=== PATIENT | female | born 1970 | race Caucasian/White ===

== ENCOUNTER → 2018-04-22 16:00 | Outpatient (CLI) | payer OTHER, SELFPAY | PROVIDERS: Family Provider Internal Medicine; PCP Internal Medicine | DX: Z23 Encounter for immunization (principal) | CPT/HCPCS: 90471; 90686 ==

== ENCOUNTER → 2018-08-02 13:38 | Outpatient (CLI) | payer OTHER, SELFPAY ==
--- NOTE | 2018-08-02 | DI.US.S_ITS ---
PROCEDURE: US PELVIC COMPLETE INDICATIONS: MENNORHAGIA TECHNIQUE: Real-time scanning was performed of the pelvic organs, with image documentation. Additional endovaginal scanning was necessary due to incomplete visualization of the adnexal and endometrial structures by transabdominal scanning. COMPARISON: None. FINDINGS: Transabdominal scanning: Limited scanning through the kidneys shows no hydronephrosis. No pathologic free abdominal or pelvic fluid. Endovaginal scanning: Uterus: Uterus is normal in size at the 4.2 x 5.4 x 9.4 cm. The endometrium measures 10.1 mm in combined thickness. Ovaries: Normal in size and echotexture measuring up to 2.1 x 1.5 x 1.1 cm on the right and 3.5 x 1.5 x 2.1 cm on the left IMPRESSION: Normal pelvic ultrasound, no source of menorrhagia is found. Dictated by: Michael Lewis M.D. on 08/02/2018 at 15:15 Approved by: Michael Lewis M.D. on 08/02/2018 at 15:16
== END ==
PROVIDERS: Family Provider Internal Medicine; PCP Internal Medicine; Visit Provider Internal Medicine
DX: N92.0 Excessive and frequent menstruation with regular cycle (principal)
CPT/HCPCS: 76856

== ENCOUNTER → 2018-08-14 07:35 | Outpatient (CLI) | payer OTHER, SELFPAY ==
[2018-08-14 08:16] LABS: Add Manual Diff / Slide Review NO; Basophils Absolute Auto 0 /uL (0-100); Basophils Percent Auto 0.4 % (0-2); Eosinophils Absolute Auto 400 /uL (0-450); Eosinophils Percent Auto 3.8 % (2-4); Hemoglobin 15.1 g/dL (12.0-16.0); Lymphocytes Absolute Auto 3000 /uL (1100-4500); Mean Corpuscular HGB Conc 33.5 % (30-36); Mean Corpuscular Hemoglobin 29.8 PG (26-34); Mean Corpuscular Volume 88.9 fL (80-100); Monocytes Absolute Auto 700 /uL (0-900); Neutrophils Absolute Auto 5500 /uL (1500-7000); Neutrophils Percent Auto 57.8 % (50-75); Platelet Count 414 X10^3/uL (150-400); Red Blood Cell Count 5.07 X10^6/uL (4.0-5.2); White Blood Cell Count 9.6 X10^3/uL (4.5-11.0)
[2018-08-14 08:54] LABS: Alanine Aminotransferase 33 IU/L (9-52); Albumin 4.6 g/dL (3.5-5.0); Albumin Globulin Ratio 1.2 (1.0-2.8); Alkaline Phosphatase 98 U/L (38-126); Aspartate Aminotransferase 35 IU/L (14-36); BUN Creatinine Ratio 23.8 (6-22); Bilirubin Total 0.8 mg/dL (0.2-1.3); Blood Urea Nitrogen 19 mg/dL (7-17); Calcium 9.9 mg/dL (8.4-10.2); Carbon Dioxide 26 mmol/L (22-32); Chloride 99 mmol/L (98-107); Cholesterol 212 mg/dL (140-199); Estimated Glomerular Filt Rate > 60.0 mL/min (>60); Glucose 121 mg/dL (70-100); HDL Cholesterol 60 mg/dL (40-60); HEMOLYSIS < 15 (0-50); LDL Cholesterol Calculated 122 mg/dL (<100); Potassium 3.6 mmol/L (3.4-5.1); Sodium 138 mmol/L (137-145); Total Protein 8.6 g/dL (6.3-8.2); Triglycerides 152 mg/dL (35-150)
[2018-08-14 09:23] LABS: Thyroid Stimulating Hormone 1.21 uIU/mL (0.47-4.68)
== END ==
PROVIDERS: PCP Internal Medicine; Visit Provider Internal Medicine
DX: I10 Essential (primary) hypertension (principal); N94.6 Dysmenorrhea, unspecified; E78.5 Hyperlipidemia, unspecified; E66.9 Obesity, unspecified
CPT/HCPCS: 36415; 80053; 80061; 84443; 85025

== ENCOUNTER → 2018-11-19 06:58 | Outpatient (CLI) | payer OTHER, SELFPAY ==
[2018-11-19 09:01] LABS: BUN Creatinine Ratio 18.8 (6-22); Blood Urea Nitrogen 15 mg/dL (7-17); Calcium 9.7 mg/dL (8.4-10.2); Carbon Dioxide 27 mmol/L (22-32); Chloride 102 mmol/L (98-107); Estimated Glomerular Filt Rate > 60.0 mL/min (>60); Glucose 116 mg/dL (70-100); HEMOLYSIS < 15 (0-50); Potassium 4.1 mmol/L (3.4-5.1); Sodium 138 mmol/L (137-145)
[2018-11-19 10:10] LABS: Hemoglobin A1C% w Est Avg Glu 5.4 % (4.0-6.0)
== END ==
PROVIDERS: PCP Internal Medicine; Visit Provider Internal Medicine
DX: R73.9 Hyperglycemia, unspecified (principal)
CPT/HCPCS: 36415; 80048; 83036

== ENCOUNTER → 2018-12-06 13:06 | Outpatient (CLI) | payer OTHER, SELFPAY ==
[2018-12-06 14:10] LABS: Add Manual Diff / Slide Review NO; Basophils Absolute Auto 100 /uL (0-100); Basophils Percent Auto 0.6 % (0-2); Eosinophils Absolute Auto 400 /uL (0-450); Eosinophils Percent Auto 4.5 % (2-4); Hematocrit 40.3 % (36-46); Hemoglobin 13.3 g/dL (12.0-16.0); Lymphocytes Absolute Auto 3400 /uL (1100-4500); Lymphocytes Percent Auto 36.7 % (25-40); Mean Corpuscular HGB Conc 32.9 % (30-36); Mean Corpuscular Hemoglobin 28.8 PG (26-34); Mean Corpuscular Volume 87.5 fL (80-100); Monocytes Absolute Auto 700 /uL (0-900); Monocytes Percent Auto 7.1 % (3-14); Neutrophils Absolute Auto 4700 /uL (1500-7000); Neutrophils Percent Auto 51.1 % (50-75); Platelet Count 369 X10^3/uL (150-400); Red Blood Cell Count 4.61 X10^6/uL (4.0-5.2); Red Cell Distribution Width 14.5 % (11.6-14.8); White Blood Cell Count 9.2 X10^3/uL (4.5-11.0)
[2018-12-06 14:30] LABS: Blood Urea Nitrogen 16 mg/dL (7-17); Calcium 10.3 mg/dL (8.4-10.2); Carbon Dioxide 27 mmol/L (22-32); Chloride 104 mmol/L (98-107); Estimated Glomerular Filt Rate > 60.0 mL/min (>60); Glucose 97 mg/dL (70-100); HEMOLYSIS < 15 (0-50); Sodium 141 mmol/L (137-145)
[2018-12-06 14:54] LABS: Potassium 3.8 mmol/L (3.4-5.1)
== END ==
PROVIDERS: PCP Internal Medicine; Visit Provider Specialist
DX: N92.0 Excessive and frequent menstruation with regular cycle (principal); Z01.818 Encounter for other preprocedural examination
CPT/HCPCS: 36415; 80048; 85025

== ENCOUNTER 2018-12-09 12:58 | Day surgery (SDC) | payer OTHER, SELFPAY ==
[2018-12-04 08:20] VITALS: BMI 38.4
[2018-12-09] VITALS (7 sets, daily range): BP systolic 136–152; BP diastolic 94–103; PULSE 82–98; RESP 16–18; TEMP 36.1–36.7; O2SAT 95–99; BMI 38.6
[2018-12-09] MEDS: LACTATED RINGERS 1,000 ML 42 ML IV (14:03)
--- NOTE | 2018-12-09 14:41 | PM.PREOP ---
Pre-operative Note Interval Note History & Physical reviewed/Exam performed by Physician: Yes Changes to H&P: No
--- NOTE | 2018-12-09 15:05 | SUR.OPER ---
Lithotomy on padded OR bed, head on pillow, arms secured on padded arm boards at <90 degrees abduction. Legs secured in padded yellow fins stirrups.
--- NOTE | 2018-12-09 15:15 | PM.OP.1 ---
Operative Date/Time/Diagnoses Date of procedure: 12/09/18 Time of procedure: 15:15 Pre-op diagnosis: Menorrhagia Post-op diagnosis: same Procedure & Clinicians Procedure: Hysteroscopy with NovaSure endometrial ablation Same procedure as scheduled: Yes Indications: Menorrhagia Surgeon: Esha Casanova Click Yes if Unassisted: Yes Anesthesia Type: General Operative Notes Findings: Thin endometrium on hysteroscopy, no obvious uterine pathology. Closure Type: not applicable Specimen(s): none sent Estimated Blood Loss (mL): 5 Blood products transfused: none Procedure in detail: The patient was brought to the operating room where she underwent general anesthesia. She was placed in low stirrups She was prepped and draped in usual sterile fashion.Pulsatile stockings were not indicated due to the short nature of the procedure, warming with blankets, no antibiotics were indicated. A single-tooth tenaculum was placed on the anterior lip of the cervix and the uterus dilated to #8 Hegar dilator. The hysteroscope was placed into the uterus with saline running. There were no abnormalities seen. The NovaSure sound was used to determine the length of the uterus which was over 6.5 cm. This was set on the NovaSure device. The device was placed in the uterus and the width determined to be 4.5 cm. The length and width were entered into the NovaSure machine. The plunger was pushed to the cervix to effect a good vacuum seal. This was documented by the machine. Cauterization was done with a total power of 161 and 57 seconds. The NovaSure array was pulled back into the device and then the device removed. Patient tolerated the procedure well. Counts of instruments and sponges were correct. Patient went to recovery room in good condition. Complications: none Condition: stable Disposition: same day surgery Plan for aftercare: Follow-up as needed
== END 2018-12-09 16:07 | disposition home or self-care (01) ==
PROVIDERS: PCP Internal Medicine; Visit Provider Specialist
PROC: 0U5B8ZZ Destruction of Endometrium, Via Natural or Artificial Opening Endoscopic (ICD-10-PCS; CPT 58563; principal; 2018-12-09 14:30)
DX: N92.0 Excessive and frequent menstruation with regular cycle (principal)
CPT/HCPCS: 58563; J1100; J1885; J2250; J2405; J2704; J3010

== ENCOUNTER → 2019-03-25 13:30 | Outpatient (CLI) | payer OTHER, SELFPAY | PROVIDERS: PCP Internal Medicine | DX: Z23 Encounter for immunization (principal) | CPT/HCPCS: 90471; 90686 ==

== ENCOUNTER 2019-07-10 20:34 | Emergency (ER) | payer OTHER, SELFPAY ==
[2019-07-10 20:54] VITALS: BP 140/100; PULSE 108; RESP 20; TEMP 36.9; O2SAT 96
--- NOTE | 2019-07-10 20:58 | DI.RAD.S_ITS ---
PROCEDURE: XR KNEE RT 3V INDICATIONS: fell on concrete hrting both knees this am TECHNIQUE: 3 views of the knee were acquired. COMPARISON: None. FINDINGS: Bones: No fractures or dislocations. No suspicious bony lesions. Soft tissues: No joint effusion. No suspicious soft tissue calcifications. IMPRESSION: No fracture. Dictated by: Rashad Shaw M.D. on 07/10/2019 at 21:58 Approved by: Rashad Shaw M.D. on 07/10/2019 at 21:59
--- NOTE | 2019-07-10 21:00 | DI.RAD.S_ITS ---
PROCEDURE: XR KNEE LT 3V INDICATIONS: fall on knees TECHNIQUE: 3 views of the knee were acquired. COMPARISON: None. FINDINGS: Bones: No fractures or dislocations. No suspicious bony lesions. Soft tissues: No joint effusion. No suspicious soft tissue calcifications. IMPRESSION: No fracture Dictated by: Rashad Shaw M.D. on 07/10/2019 at 22:00 Approved by: Rashad Shaw M.D. on 07/10/2019 at 22:00
--- NOTE | 2019-07-10 23:06 | ED_ITS ---
HPI - Extremity Injury (Lower) General Chief Complaint: Extremity Injury, Lower Stated Complaint: BILATERAL KNEE PAIN S/P FALL Time Seen by Provider: 07/10/19 23:05 Source: patient Mode of arrival: Ambulatory Limitations: no limitations History of Present Illness HPI Narrative: 48-year-old woman with a history of hypertension, reflux, hyperlipidemia, mild anxiety presents after a fall where she landed on both knee s with a valgus type deformity to both knees. Complaining of pain medially on both sides. She is able to walk but the pain is increasing to the point that she came to the emergency room for further evaluation Related Data Home Medications Medication Instructions Recorded Confirmed albuterol sulfate 1 - 2 puff INHALATION Q4-6H PRN #0 04/18/11 12/09/18 cetirizine 10 mg PO DAILY PRN #0 04/18/11 12/09/18 simvastatin [Zocor] 20 mg PO QHS 12/04/18 12/09/18 trazodone 50 mg PO HSP PRN 12/04/18 12/09/18 alprazolam 0.5 mg PO Q8HP PRN 12/09/18 12/09/18 Previous Rx's Medication Instructions Recorded omeprazole 20 mg PO QDAY #90 cap 03/12/17 hydrochlorothiazide 25 mg tablet 25 mg PO QDAY #90 tab 03/19/18 losartan 50 mg tablet 50 mg PO QDAY #90 tab 05/07/18 bupropion HCl 150 mg 24 hr tablet, 150 mg PO QDAY #90 tab 06/17/18 extended release Allergies Allergy/AdvReac Type Severity Reaction Status Date / Time cephalexin Allergy Mild RASH Verified 12/09/18 13:40 ciprofloxacin Allergy Mild RASH Verified 12/09/18 13:40 lisinopril Allergy Mild COUGH Verified 12/09/18 13:40 Review of Systems Review of Systems Narrative: Denies ? fever ? cough ? cold ? chills ? chest pain ? dyspnea ? wheezing ? abdominal pain ? change to bowel or bladder habits ? nausea vomiting ? skin changes ? rashes Patient History Medical History (Updated 07/10/19 @ 23:17 by Jessie Abdi MD) Anxiety and depression (Acute ~2001) Asthma (Acute ~2006) Cardiac arrhythmia (Acute ~2004) Central serous retinopathy (Acute ~2012) HTN (hypertension) (Acute) Hyperthyroidism (Acute ~2002) Family History (Updated 12/08/13 @ 00:00 by Conversion Provider) Grandmother Cancer Mother Age: 75 Hypertension High cholesterol Grandfather Heart disease Cancer Grandmother Age: 106 Stroke Heart disease Macular degeneration, wet Macular degeneration, dry Social History household members: family and children Smoking Status: Never smoker alcohol intake: current Smoking Status: Never smoker alcohol intake frequency: holidays/special occasions only Substance Use Type: does not use Exam Narrative Exam Narrative: General: Alert appropriate in no acute distress Respiratory: Able to speak in full sentences, no obvious respiratory distress Skin: No obvious rashes, warm and dry Neurologic: Grossly intact no obvious asymmetries or abnormalities Psych, appropriate insight and affect, cooperative Extremities: Both knees are examined. She has tenderness along the medial collateral ligament insertions and effusions in the medial portion of the knees bilaterally. There's no contusions or abrasions. Completely neurovascularly intact bilaterally. She is able to walk. Decreased range of motion to complete flexion due to pain and effusion bilaterally Initial Vital Signs Initial Vital Signs: Vital Signs Temperature 98.4 F 07/10/19 20:54 Pulse Rate 108 H 07/10/19 20:54 Respiratory Rate 20 07/10/19 20:54 Blood Pressure 140/100 H 07/10/19 20:54 Pulse Oximetry 96 07/10/19 20:54 Course Orders Ordered: ED Orders 07/10/19 20:58 XR knee RT 3V Stat 07/10/19 21:00 XR knee LT 3V Stat Vital Signs Vital signs: Vital Signs - 8 hr 07/10/19 23:22 Pulse Rate 102 H Blood Pressure [Left Arm] 146/93 H Pulse Oximetry 96 MDM - Extremity Injury (Lower) Imaging Data Knee xr R: Radiologist's Impression: knee xray L: Radiologist's Impression: IMPRESSION: No fracture. Dictated by: Rashad Shaw M.D. on 07/10/2019 at 21:58 Discharge Plan Departure Patient Disposition: Home Clinical Impression: Sprain of medial collateral ligament of left knee, initial encounter, Sprain of medial collateral ligament of right knee, initial encounter Discharge Date/Time: 07/10/19 23:39 Instructions: DI for Knee Sprain Activity Restrictions/Additional Instructions: I'm so sorry fell so hard today. Here x-rays are unremarkable. With the mechanism of your fall the area of your pain I suspect the you have strained the medial collateral ligaments of both knees. Fortunately this will heal all by itself. I would expect the pain to be worse in the 1st 1-2 days after the injury. Ice will be helpful in controlling some of the swelling. I would recommend to ibuprofen and 1 Tylenol every 6 hours as needed for pain. I hope you heal quickly It was delightful to see you again! Prescriptions: No Action cetirizine 10 MG tablet 10 mg PO DAILY PRN (Reason: Allergy Symptoms) Qty: 0 RF: 0 albuterol sulfate 90 mcg/actuation Hfa Aerosol Inhaler 1 - 2 puff INHALATION Q4-6H PRN (Reason: Dyspnea) Qty: 0 RF: 0 omeprazole 20 MG capsule,delayed release(DR/EC) 20 mg PO QDAY Qty: 90 RF: 3 hydrochlorothiazide 25 mg tablet 25 mg PO QDAY Qty: 90 RF: 0 losartan 50 mg tablet 50 mg PO QDAY Qty: 90 RF: 3 bupropion HCl [Wellbutrin XL] 150 mg tablet extended release 24 hr 150 mg PO QDAY Qty: 90 RF: 0 trazodone 50 MG tablet 50 mg PO HSP PRN (Reason: Sleep) RF: 0 simvastatin [Zocor] 20 MG tablet 20 mg PO QHS RF: 0 alprazolam 0.5 mg tablet 0.5 mg PO Q8HP PRN (Reason: Anxiety) RF: 0 Referrals: Alice Mojica ARNP [Primary Care Provider] - Stand Alone Forms: Work Release Note
[2019-07-10 23:22] VITALS: BP 146/93; PULSE 102; O2SAT 96
== END 2019-07-10 23:39 | disposition home or self-care (01) ==
PROVIDERS: Emergency Provider Emergency Medicine; Family Provider Family Medicine; PCP Internal Medicine
DX: S83.412A Sprain of medial collateral ligament of left knee, initial encounter (principal); S83.411A Sprain of medial collateral ligament of right knee, initial encounter; W19.XXXA Unspecified fall, initial encounter
CPT/HCPCS: 73562; 99283

== ENCOUNTER → 2020-01-05 12:06 | Outpatient (CLI) | payer OTHER, SELFPAY ==
[2020-01-05 13:29] LABS: Add Manual Diff / Slide Review NO; Basophils Absolute Auto 0 /uL (0-100); Basophils Percent Auto 0.2 % (0-2); Eosinophils Absolute Auto 200 /uL (0-450); Eosinophils Percent Auto 2.1 % (2-4); Hematocrit 42.3 % (36-46); Lymphocytes Absolute Auto 3500 /uL (1100-4500); Lymphocytes Percent Auto 36.1 % (25-40); Mean Corpuscular Hemoglobin 29.1 PG (26-34); Mean Corpuscular Volume 88.3 fL (80-100); Monocytes Absolute Auto 600 /uL (0-900); Monocytes Percent Auto 6.6 % (3-14); Neutrophils Absolute Auto 5400 /uL (1500-7000); Platelet Count 354 X10^3/uL (150-400); Red Blood Cell Count 4.79 X10^6/uL (4.0-5.2); Red Cell Distribution Width 14.1 % (11.6-14.8); White Blood Cell Count 9.8 X10^3/uL (4.5-11.0)
[2020-01-05 14:08] LABS: Alanine Aminotransferase 18 IU/L (<35); Albumin 4.3 g/dL (3.5-5.0); Albumin Globulin Ratio 1.3 (1.0-2.8); Alkaline Phosphatase 104 U/L (38-126); Aspartate Aminotransferase 26 IU/L (14-36); BUN Creatinine Ratio 13.3 (6-22); Bilirubin Total 0.7 mg/dL (0.2-1.3); Blood Urea Nitrogen 10 mg/dL (7-17); Calcium 9.9 mg/dL (8.4-10.2); Carbon Dioxide 24 mmol/L (22-32); Chloride 103 mmol/L (98-107); Cholesterol 197 mg/dL (140-199); Estimated Glomerular Filt Rate > 60.0 mL/min (>60); Globulin 3.3 g/dL (1.7-4.1); Glucose 92 mg/dL (70-100); HDL Cholesterol 58 mg/dL (40-60); HEMOLYSIS < 15 (0-50); LDL Cholesterol Calculated 107 mg/dL (<100); Potassium 3.8 mmol/L (3.4-5.1); Sodium 136 mmol/L (137-145); Total Protein 7.6 g/dL (6.3-8.2); Triglycerides 160 mg/dL (35-150)
[2020-01-05 14:19] LABS: LDL Cholesterol Direct 122 mg/dL (<100)
[2020-01-05 14:45] LABS: Thyroid Stimulating Hormone 0.996 uIU/mL (0.47-4.68)
== END ==
PROVIDERS: Family Provider Internal Medicine; PCP Internal Medicine; Referring Provider Internal Medicine; Visit Provider Internal Medicine
DX: Z79.899 Other long term (current) drug therapy (principal); I10 Essential (primary) hypertension; E78.5 Hyperlipidemia, unspecified; Z13.29 Encounter for screening for other suspected endocrine disorder
CPT/HCPCS: 36415; 80053; 80061; 83721; 84443; 85025

== ENCOUNTER → 2020-03-03 08:09 | Outpatient (CLI) | payer OTHER, SELFPAY ==
--- NOTE | 2020-03-03 08:29 | DI.MG.S_ITS ---
Patient Name: ROBERT MCCARTHY date: 1970 Sex: F Attending Physician: Galina Indications: Date: 03/03/2020 08:23 At the request of: SUMA EMANUEL Procedure: MM screening mammo BI BILATERAL DIGITAL SCREENING MAMMOGRAM 3D/2D WITH CAD: 03/03/2020 CLINICAL: Routine screening. Family history of breast cancer. Comparison is made to exams dated: 03/06/2017 mammogram, 06/02/2014 mammogram, and 11/15/2012 mammogram - [facility]. The tissue of both breasts is heterogeneously dense. This may lower the sensitivity of mammography. Current study was also evaluated with a Computer Aided Detection (CAD) system. No significant masses, calcifications, or other findings are seen in either breast. There has been no significant interval change. IMPRESSION: NEGATIVE There is no mammographic evidence of malignancy. A 1 year screening mammogram is recommended. This exam was interpreted at Station ID: [id number]. NOTE: For mammograms, a report in lay terms will be sent to the patient. Approximately 15% of breast malignancies will not be visualized mammographically. In the management of a palpable breast mass, a negative mammogram must not discourage biopsy of a clinically suspicious lesion. Electronically Signed By: Coleman Portillo M.D., jr/apoorva:03/03/2020 09:18:07 letter sent: Normal Exam ACR BI-RADS Category 1: Negative 3341F
== END ==
PROVIDERS: Family Provider Internal Medicine; PCP Internal Medicine; Referring Provider Internal Medicine; Visit Provider Internal Medicine
DX: Z12.31 Encounter for screening mammogram for malignant neoplasm of breast (principal); Z80.3 Family history of malignant neoplasm of breast
CPT/HCPCS: 77063; 77067

== ENCOUNTER → 2020-03-18 | Outpatient (CLI) | payer OTHER, SELFPAY | PROVIDERS: Family Provider Internal Medicine; PCP Internal Medicine; Referring Provider Internal Medicine; Visit Provider Internal Medicine | DX: Z23 Encounter for immunization (principal) | CPT/HCPCS: 90471; 90686 ==

== ENCOUNTER → 2020-06-24 10:48 | Outpatient (CLI) | payer OTHER, SELFPAY ==
[2020-06-24] MEDS: COVID-19 VACC(MODERNA-1)/PF 100 MCG/0.5 ML VIAL IM (10:53)
== END ==
PROVIDERS: Family Provider Internal Medicine; PCP Internal Medicine; Visit Provider Internal Medicine
DX: Z23 Encounter for immunization (principal)
CPT/HCPCS: 0011A; 91301

== ENCOUNTER → 2020-07-23 11:01 | Outpatient (CLI) | payer OTHER, SELFPAY ==
[2020-07-23] MEDS: COVID-19 VACC #2, MRNA(MOD) 100 MCG/0.5 ML VIAL IM (11:07)
== END ==
PROVIDERS: Family Provider Internal Medicine; PCP Internal Medicine; Visit Provider Internal Medicine
DX: Z23 Encounter for immunization (principal)
CPT/HCPCS: 0012A; 91301

== ENCOUNTER → 2020-09-29 08:50 | Outpatient (CLI) | payer OTHER, SELFPAY ==
[2020-09-29 12:21] LABS: COVID19 -Nasal RAPID Negative (Negative)
== END ==
PROVIDERS: Family Provider Internal Medicine; PCP Internal Medicine; Visit Provider Student in an Organized Health Care Education/Training Program
DX: R09.89 Other specified symptoms and signs involving the circulatory and respiratory systems (principal); R05 Cough; Z20.822 Contact with and (suspected) exposure to COVID-19
CPT/HCPCS: 87635

== ENCOUNTER → 2021-03-29 | Outpatient (CLI) | payer OTHER, SELFPAY | PROVIDERS: Family Provider Internal Medicine; PCP Internal Medicine; Referring Provider Internal Medicine; Visit Provider Internal Medicine | DX: Z23 Encounter for immunization (principal) | CPT/HCPCS: 90471; 90686 ==

== ENCOUNTER → 2021-04-22 15:03 | Outpatient (CLI) | payer OTHER, SELFPAY ==
[2021-04-22] MEDS: COVID-19 VACC #3, MRNA(MOD) 50 MCG/0.25 ML VIAL IM (15:42)
== END ==
PROVIDERS: Family Provider Internal Medicine; PCP Internal Medicine; Visit Provider Internal Medicine
DX: Z23 Encounter for immunization (principal)
CPT/HCPCS: 0013A; 91301

== ENCOUNTER → 2021-04-30 11:01 | Outpatient (CLI) | payer OTHER, SELFPAY ==
[2021-04-30 11:28] LABS: Add Manual Diff / Slide Review NO; Basophils Absolute Auto 0 /uL (0-100); Basophils Percent Auto 0.4 % (0-2); Eosinophils Absolute Auto 200 /uL (0-450); Eosinophils Percent Auto 2.8 % (2-4); Hematocrit 41.5 % (36-46); Hemoglobin 13.9 g/dL (12.0-16.0); Lymphocytes Absolute Auto 3100 /uL (1100-4500); Lymphocytes Percent Auto 39.6 % (25-40); Mean Corpuscular HGB Conc 33.6 % (30-36); Mean Corpuscular Hemoglobin 29.6 PG (26-34); Mean Corpuscular Volume 88.2 fL (80-100); Monocytes Absolute Auto 600 /uL (0-900); Monocytes Percent Auto 7.4 % (3-14); Neutrophils Absolute Auto 3900 /uL (1500-7000); Neutrophils Percent Auto 49.8 % (50-75); Platelet Count 337 X10^3/uL (150-400); Red Cell Distribution Width 14.2 % (11.6-14.8); White Blood Cell Count 7.8 X10^3/uL (4.5-11.0)
[2021-04-30 11:58] LABS: Alanine Aminotransferase 39 IU/L (<35); Albumin 4.2 g/dL (3.5-5.0); Albumin Globulin Ratio 1.2 (1.0-2.8); Alkaline Phosphatase 79 U/L (38-126); Aspartate Aminotransferase 48 IU/L (14-36); BUN Creatinine Ratio 16.9 (6-22); Bilirubin Total 0.7 mg/dL (0.2-1.3); Blood Urea Nitrogen 12 mg/dL (7-17); Calcium 9.5 mg/dL (8.4-10.2); Carbon Dioxide 30 mmol/L (22-32); Chloride 103 mmol/L (98-107); Cholesterol 203 mg/dL (140-199); Estimated Glomerular Filt Rate > 60.0 mL/min (>60); Globulin 3.6 g/dL (1.7-4.1); Glucose 112 mg/dL (70-100); HDL Cholesterol 49 mg/dL (40-60); HEMOLYSIS < 15 (0-50); LDL Cholesterol Calculated 120 mg/dL (<100); Potassium 3.5 mmol/L (3.4-5.1); Sodium 140 mmol/L (137-145); Total Protein 7.8 g/dL (6.3-8.2); Triglycerides 169 mg/dL (35-150)
[2021-04-30 12:23] LABS: Thyroid Stimulating Hormone 0.756 uIU/mL (0.47-4.68)
[2021-04-30 12:25] LABS: Hemoglobin A1C% w Est Avg Glu 6.2 % (4.0-6.0)
== END ==
PROVIDERS: Family Provider Internal Medicine; PCP Internal Medicine; Referring Provider Internal Medicine; Visit Provider Internal Medicine
DX: Z13.0 Encounter for screening for diseases of the blood and blood-forming organs and certain disorders involving the immune mechanism (principal); I10 Essential (primary) hypertension; E78.5 Hyperlipidemia, unspecified; Z13.29 Encounter for screening for other suspected endocrine disorder
CPT/HCPCS: 36415; 80053; 80061; 83036; 84443; 85025

== ENCOUNTER → 2021-05-02 11:24 | Outpatient (CLI) | payer OTHER, SELFPAY ==
[2021-05-02 15:25] LABS: COVID19 -Nasal RAPID Negative (Negative)
== END ==
PROVIDERS: Family Provider Internal Medicine; PCP Internal Medicine; Referring Provider Physician Assistant; Visit Provider Physician Assistant
DX: Z20.822 Contact with and (suspected) exposure to COVID-19 (principal); J02.9 Acute pharyngitis, unspecified
CPT/HCPCS: 87635

== ENCOUNTER → 2021-07-23 11:33 | Outpatient (CLI) | payer OTHER, SELFPAY ==
[2021-07-23 12:44] LABS: Alanine Aminotransferase 41 IU/L (<35); Albumin 4.2 g/dL (3.5-5.0); Albumin Globulin Ratio 1.3 (1.0-2.8); Alkaline Phosphatase 81 U/L (38-126); Aspartate Aminotransferase 42 IU/L (14-36); BUN Creatinine Ratio 19.4 (6-22); Bilirubin Total 0.5 mg/dL (0.2-1.3); Blood Urea Nitrogen 13 mg/dL (7-17); Calcium 10.1 mg/dL (8.4-10.2); Carbon Dioxide 30 mmol/L (22-32); Chloride 104 mmol/L (98-107); Estimated Glomerular Filt Rate > 60.0 mL/min (>60); Globulin 3.3 g/dL (1.7-4.1); Glucose 109 mg/dL (70-100); HEMOLYSIS < 15 (0-50); Potassium 4.2 mmol/L (3.4-5.1); Sodium 138 mmol/L (137-145); Total Protein 7.5 g/dL (6.3-8.2)
[2021-07-23 13:08] LABS: Hemoglobin A1C% w Est Avg Glu 6.2 % (4.0-6.0)
== END ==
PROVIDERS: Family Provider Internal Medicine; PCP Internal Medicine; Referring Provider Internal Medicine; Visit Provider Internal Medicine
DX: R73.03 Prediabetes (principal); E78.5 Hyperlipidemia, unspecified; I10 Essential (primary) hypertension; E66.9 Obesity, unspecified
CPT/HCPCS: 36415; 80053; 83036

== ENCOUNTER → 2022-04-21 14:02 | Outpatient (CLI) | payer OTHER, SELFPAY | PROVIDERS: Family Provider Internal Medicine; PCP Internal Medicine; Referring Provider Internal Medicine; Visit Provider Internal Medicine | DX: Z23 Encounter for immunization (principal) | CPT/HCPCS: 90471; 90686 ==

== ENCOUNTER → 2022-05-25 13:39 | Outpatient (CLI) | payer OTHER, SELFPAY ==
--- NOTE | 2022-05-25 | DI.MG.S_ITS ---
BILATERAL DIGITAL SCREENING MAMMOGRAM 3D/2D WITH CAD: 05/25/2022 CLINICAL: Routine screening. Family history of breast cancer. Comparison is made to exams dated: 03/03/2020 mammogram, 03/06/2017 mammogram, 06/02/2014 mammogram, and 11/15/2012 mammogram - [facility]. Both breasts are heterogeneously dense, which may obscure small masses (category c / 51-75% glandular tissue). Current study was also evaluated with a Computer Aided Detection (CAD) system. No significant masses, calcifications, or other findings are seen in either breast. There has been no significant interval change. IMPRESSION: NEGATIVE There is no mammographic evidence of malignancy. A 1 year screening mammogram is recommended. Based on the Tyrer Cuzick model (a risk assessment model) the patient's lifetime risk is 12.9% and her 10 year risk is 3.0%. According to the ACR, ACS, and NCCN guidelines, an annual breast MRI exam along with mammogram is recommended if the patient's lifetime risk is 20% or greater. This exam was interpreted at Station ID: [id number]. NOTE: For mammograms, a report in lay terms will be sent to the patient. Approximately 15% of breast malignancies will not be visualized mammographically. In the management of a palpable breast mass, a negative mammogram must not discourage biopsy of a clinically suspicious lesion. Electronically Signed By: Mark Anthony ugalde/apoorva:05/25/2022 15:01:36 letter sent: Normal Exam ACR BI-RADS Category 1: Negative 3341F
== END ==
PROVIDERS: Family Provider Internal Medicine; PCP Internal Medicine; Referring Provider Internal Medicine; Visit Provider Internal Medicine
DX: Z12.31 Encounter for screening mammogram for malignant neoplasm of breast (principal); Z80.3 Family history of malignant neoplasm of breast
CPT/HCPCS: 77063; 77067

== ENCOUNTER → 2022-06-03 10:37 | Outpatient (CLI) | payer OTHER, SELFPAY ==
[2022-06-03 12:11] LABS: Alanine Aminotransferase 37 IU/L (<35); Albumin Globulin Ratio 1.2 (1.0-2.8); Alkaline Phosphatase 88 U/L (38-126); Aspartate Aminotransferase 37 IU/L (14-36); Bilirubin Total 0.6 mg/dL (0.2-1.3); Blood Urea Nitrogen 13 mg/dL (7-17); Calcium 9.3 mg/dL (8.4-10.2); Carbon Dioxide 30 mmol/L (22-32); Chloride 100 mmol/L (98-107); Estimated Glomerular Filt Rate > 60 mL/min (>60); Globulin 3.3 g/dL (1.7-4.1); Glucose 128 mg/dL (70-100); HEMOLYSIS < 15 (0-50); Sodium 137 mmol/L (137-145); Total Protein 7.3 g/dL (6.3-8.2)
[2022-06-03 12:14] LABS: Hemoglobin A1C% w Est Avg Glu 6.4 % (4.0-6.0)
[2022-06-03 12:26] LABS: Potassium 3.6 mmol/L (3.4-5.1)
[2022-06-03 12:48] LABS: Creatinine Urine Random 189.9 mg/dL
[2022-06-03 12:59] LABS: Microalbumi Creatinin Ratio Ur 334.9 ug/mg CR (<30); Microalbumin Urine Random 63.6 mg/dL (0-1.6)
== END ==
PROVIDERS: Family Provider Internal Medicine; PCP Internal Medicine; Referring Provider Internal Medicine; Visit Provider Internal Medicine
DX: R73.03 Prediabetes (principal)
CPT/HCPCS: 36415; 80053; 82043; 82570; 83036

== ENCOUNTER → 2022-07-04 13:31 | Outpatient (CLI) | payer OTHER, SELFPAY ==
[2022-07-04 14:11] LABS: Blood Urea Nitrogen 14 mg/dL (7-17); Calcium 9.8 mg/dL (8.4-10.2); Carbon Dioxide 27 mmol/L (22-32); Chloride 101 mmol/L (98-107); Estimated Glomerular Filt Rate > 60 mL/min (>60); Glucose 134 mg/dL (70-100); HEMOLYSIS < 15 (0-50); Potassium 3.3 mmol/L (3.4-5.1); Sodium 141 mmol/L (137-145)
[2022-07-04 19:03] LABS: Collection Time Urine 24 Hours; Creat Clearance, Corrected 126.8 mL/MIN; Creatinine Clearance Urine 161.5 mL/MIN; Creatinine Urine Random 162.8 mg/dL; Patient Height Urine 65 inches; Patient Weight Urine 260 lbs; Protein (Total) Urine Random 73 mg/dL (0-12); Total Protein 24 Hour Urine 730 mg/day (42-225); Total Volume Urine 1000 mL
== END ==
PROVIDERS: Family Provider Internal Medicine; PCP Internal Medicine; Referring Provider Internal Medicine; Visit Provider Internal Medicine
DX: R80.9 Proteinuria, unspecified (principal)
CPT/HCPCS: 36415; 80048; 82575; 84156

== ENCOUNTER 2022-07-07 10:29 | Emergency (ER) | payer OTHER, SELFPAY ==
[2022-07-07 10:35] VITALS: BP 165/105; PULSE 111; RESP 17; TEMP 36.8; O2SAT 96; BMI 43.2
[2022-07-07 10:36] VITALS: PULSE 114; O2SAT 97
--- NOTE | 2022-07-07 10:39 | DI.RAD.S_ITS ---
PROCEDURE: XR CHEST 1V INDICATIONS: chest pain TECHNIQUE: One view of the chest was acquired. COMPARISON: None. FINDINGS: Surgical changes and devices: None. Lungs and pleura: Lungs are clear. No pleural effusions or pneumothorax. Mediastinum: Mediastinal contours appear normal. Heart size is normal. Bones and chest wall: No suspicious bony lesions. Overlying soft tissues appear unremarkable. IMPRESSION: No evidence acute pulmonary process. Dictated by: Aron Romano M.D. on 07/07/2022 at 11:15 Approved by: Aron Romano M.D. on 07/07/2022 at 11:16
[2022-07-07 11:16] LABS: PTT Partial Thromboplastin Tim 33 SECONDS (26-36)
[2022-07-07 11:18] LABS: Alanine Aminotransferase 60 IU/L (<35); Alkaline Phosphatase 103 U/L (38-126); Aspartate Aminotransferase 69 IU/L (14-36); BUN Creatinine Ratio 16.4 (6-22); Bilirubin Total 0.8 mg/dL (0.2-1.3); Blood Urea Nitrogen 12 mg/dL (7-17); Calcium 9.7 mg/dL (8.4-10.2); Carbon Dioxide 31 mmol/L (22-32); Chloride 97 mmol/L (98-107); Creatine Kinase 86 U/L (30-135); Estimated Glomerular Filt Rate > 60 mL/min (>60); Glucose 117 mg/dL (70-100); HEMOLYSIS < 15 (0-50); Lipase 85 U/L (23-300); Magnesium 1.7 mg/dL (1.6-2.3); Potassium 3.1 mmol/L (3.4-5.1); Sodium 139 mmol/L (137-145); Total Protein 8.7 g/dL (6.3-8.2)
[2022-07-07 11:19] LABS: Add Manual Diff / Slide Review NO; Basophils Absolute Auto 100 /uL (0-100); Basophils Percent Auto 0.5 % (0-2); Eosinophils Absolute Auto 300 /uL (0-450); Eosinophils Percent Auto 2.9 % (2-4); Hematocrit 42.3 % (36-46); Hemoglobin 14.3 g/dL (12.0-16.0); Lymphocytes Absolute Auto 3600 /uL (1100-4500); Mean Corpuscular HGB Conc 33.8 % (30-36); Mean Corpuscular Hemoglobin 29.6 PG (26-34); Mean Corpuscular Volume 87.7 fL (80-100); Monocytes Absolute Auto 700 /uL (0-900); Monocytes Percent Auto 6.9 % (3-14); Neutrophils Absolute Auto 5600 /uL (1500-7000); Neutrophils Percent Auto 54.7 % (50-75); Platelet Count 352 X10^3/uL (150-400); Red Blood Cell Count 4.82 X10^6/uL (4.0-5.2); Red Cell Distribution Width 14.1 % (11.6-14.8); White Blood Cell Count 10.2 X10^3/uL (4.5-11.0)
--- NOTE | 2022-07-07 11:21 | ED.DIZZY ---
HPI - Dizziness General Chief Complaint: Dizziness Stated Complaint: dizzy/cold/N/problems with BP, Sugars Time Seen by Provider: 07/07/22 11:20 Source: patient Mode of arrival: Ambulatory Limitations: no limitations History of Present Illness HPI Narrative: This is a 51-year-old female who presents with complaint of thinks slightly woozy, nauseous and lightheaded since Sunday after starting her new prescription for glyburide. She states she took the glyburide 1st thing in the morning and then later in the day started feel similar symptoms. She held her dose for Sunday little bit improved and then took her dose in the evening on symptoms have since reoccurred. She states she feels slightly lightheaded no syncope. No severe headaches, no fevers or chills. She is feels slightly nauseated but had no vomiting. She denies chest pain no shortness of breath, no abdominal back flank pain. She denies dysuria urgency or frequency. She states she is intermittently gets diarrhea she had an episode today. No black or bloody stools. Patient states her medication was started as she is prediabetic. She was on metformin for short period time but could not tolerate side effects. She states her physician started her on the lowest dose. Patient denies any other prior surgeries, she is currently on albuterol, omeprazole, HCTZ, losartan, bupropion, simvastatin uses a Yessy CPAP. Patient is allergic to cephalexin and lisinopril. She is scheduled to have a renal ultrasound because she has protein in her urine. She denies tobacco, alcohol or illicit. Her primary care is Alice Mojica. Related Data Home Medications Medication Instructions Recorded Confirmed albuterol sulfate 90 mcg/actuation 1 - 2 puff inhalation Q4-6H PRN 04/18/11 07/07/22 aerosol inhaler Dyspnea ##0 cetirizine 10 mg tablet 10 mg PO DAILY PRN Allergy 04/18/11 07/07/22 Symptoms ##0 simvastatin 20 mg tablet (Zocor) 20 mg PO QHS 12/04/18 07/07/22 YESSY CPAP 04/12/22 04/12/22 glyburide 2.5 mg tablet 2.5 mg PO DAILY 07/07/22 07/07/22 Previous Rx's Medication Instructions Recorded omeprazole 20 mg capsule,delayed 20 mg PO QDAY #90 caps 03/12/17 release hydrochlorothiazide 25 mg tablet 25 mg PO QDAY #90 tabs 03/19/18 losartan 50 mg tablet 50 mg PO QDAY #90 tabs 05/07/18 bupropion HCl 150 mg 24 hr tablet, 150 mg PO QDAY #90 tabs 06/17/18 extended release (Wellbutrin XL) Allergies Allergy/AdvReac Type Severity Reaction Status Date / Time cephalexin Allergy Mild RASH Verified 07/07/22 10:40 ciprofloxacin Allergy Mild RASH Verified 07/07/22 10:40 lisinopril Allergy Mild COUGH Verified 07/07/22 10:40 Review of Systems Review of Systems ROS Unobtainable: All systems reviewed & are unremarkable except as noted in HPI and below Patient History Medical History Anxiety and depression (~2001) Asthma (~2006) Cardiac arrhythmia (~2004) Central serous retinopathy (~2012) HTN (hypertension) Hyperthyroidism (~2002) Obstructive sleep apnea Family History Grandmother Cancer Mother Age: 78 Hypertension High cholesterol Grandfather Heart disease Cancer Grandmother Age: 109 Stroke Heart disease Macular degeneration, wet Macular degeneration, dry Social History household members: family and children Smoking Status: Former smoker alcohol intake: current Smoking Status: Former smoker alcohol intake frequency: holidays/special occasions only Substance Use Type: does not use Exam Narrative Exam Narrative: GENERAL: Alert and oriented x three, female in mild distress HEENT: Head normocephalic, atraumatic, EOMI, pupils reactive, face symmetric, moist mucous membranes NECK: Supple, full range of motion CARDIOVASCULAR: Regular rate and rhythm without murmurs, rubs or gallops. No JVD. RESPIRATORY: Breath sounds equal bilaterally, no wheezes rales or rhonchi. ABDOMEN: Soft, nontender. Nondistended. Normoactive bowel sounds all 4 quadrants. No guarding or rebound, rigidity, no mass : No CVA tenderness EXTREMITIES: Normal range of motion, no clubbing or edema. Neurovascularly intact NEUROLOGICAL: Cranial nerves II through XII grossly intact. Moving all extremities SKIN: Warm, dry, no petechiae, no rashes or lesions. Initial Vital Signs Initial Vital Signs: Vital Signs Temperature 98.3 F 07/07/22 10:35 Pulse Rate 111 H 07/07/22 10:35 Respiratory Rate 17 07/07/22 10:35 Blood Pressure 165/105 H 07/07/22 10:35 Pulse Oximetry 96 07/07/22 10:35 Oxygen Delivery Method 07/07/22 10:35 Course Orders Ordered: Discontinued Medications Potassium Chloride (Potassium Chloride 20 Meq/15 Ml Udc) 40 meq PO NOW ONE Stop: 07/07/22 12:14 Last Admin: 07/07/22 12:22 Dose: 40 meq Documented By: CLINTON Vital Signs Vital signs: Vital Signs - 8 hr 07/07/22 10:35 07/07/22 10:36 Temperature 98.3 F Pulse Rate 111 H 114 H Respiratory Rate 17 Blood Pressure 165/105 H Pulse Oximetry 96 97 Oxygen Delivery Method Room Air MDM - Dizziness Lab Data Result diagrams: 07/07/22 10:50 07/07/22 10:50 Labs: Lab Results 07/07/22 07/07/22 07/07/22 Range/Units 10:50 10:50 10:50 WBC 10.2 (4.5-11.0) X10^3/uL RBC 4.82 (4.0-5.2) X10^6/uL Hgb 14.3 (12.0-16.0) g/dL Hct 42.3 (36-46) % MCV 87.7 (80-100) fL MCH 29.6 (26-34) PG MCHC 33.8 (30-36) % RDW 14.1 (11.6-14.8) % Plt Count 352 (150-400) X10^3/uL Neut % (Auto) 54.7 (50-75) % Lymph % (Auto) 35.0 (25-40) % [place] % (Auto) 6.9 (3-14) % Eos % (Auto) 2.9 (2-4) % Baso % (Auto) 0.5 (0-2) % Neut # (Auto) 5600 (4685-2280) /uL Lymph # (Auto) 3600 (6359-1016) /uL [place] # (Auto) 700 (0-900) /uL Eos # (Auto) 300 (0-450) /uL Baso # (Auto) 100 (0-100) /uL PT 12.0 (10.1-12.7) SECONDS INR 1.0 (0.9-1.3) APTT 33 (26-36) SECONDS Sodium 139 (137-145) mmol/L Potassium 3.1 L (3.4-5.1) mmol/L Chloride 97 L (98-107) mmol/L Carbon Dioxide 31 (22-32) mmol/L BUN 12 (7-17) mg/dL Creatinine 0.73 (0.52-1.04) mg/dL Estimated GFR > 60 (>60) mL/min BUN/Creatinine Ratio 16.4 (6-22) Glucose 117 H (70-100) mg/dL Calcium 9.7 (8.4-10.2) mg/dL Magnesium 1.7 (1.6-2.3) mg/dL Total Bilirubin 0.8 (0.2-1.3) mg/dL AST 69 H (14-36) IU/L ALT 60 H (<35) IU/L Alkaline Phosphatase 103 (38-126) U/L Total Creatine Kinase 86 (30-135) U/L CK-MB (CK-2) TNP CK-MB (CK-2) Rel Index TNP Troponin I < 0.012 (0.01-0.034) ng/mL Total Protein 8.7 H (6.3-8.2) g/dL Albumin 4.5 (3.5-5.0) g/dL Globulin 4.2 H (1.7-4.1) g/dL Albumin/Globulin Ratio 1.1 (1.0-2.8) Lipase 85 (23-300) U/L Urine RBC (0-5/HPF) Urine WBC (0-5/HPF) Ur Squamous Epith Cells (0-5/HPF) Urine Bacteria (None) Ur Culture Indicated? 07/07/22 Range/Units 12:13 WBC (4.5-11.0) X10^3/uL RBC (4.0-5.2) X10^6/uL Hgb (12.0-16.0) g/dL Hct (36-46) % MCV (80-100) fL MCH (26-34) PG MCHC (30-36) % RDW (11.6-14.8) % Plt Count (150-400) X10^3/uL Neut % (Auto) (50-75) % Lymph % (Auto) (25-40) % [place] % (Auto) (3-14) % Eos % (Auto) (2-4) % Baso % (Auto) (0-2) % Neut # (Auto) (0076-1264) /uL Lymph # (Auto) (6953-3931) /uL [place] # (Auto) (0-900) /uL Eos # (Auto) (0-450) /uL Baso # (Auto) (0-100) /uL PT (10.1-12.7) SECONDS INR (0.9-1.3) APTT (26-36) SECONDS Sodium (137-145) mmol/L Potassium (3.4-5.1) mmol/L Chloride (98-107) mmol/L Carbon Dioxide (22-32) mmol/L BUN (7-17) mg/dL Creatinine (0.52-1.04) mg/dL Estimated GFR (>60) mL/min BUN/Creatinine Ratio (6-22) Glucose (70-100) mg/dL Calcium (8.4-10.2) mg/dL Magnesium (1.6-2.3) mg/dL Total Bilirubin (0.2-1.3) mg/dL AST (14-36) IU/L ALT (<35) IU/L Alkaline Phosphatase (38-126) U/L Total Creatine Kinase (30-135) U/L CK-MB (CK-2) CK-MB (CK-2) Rel Index Troponin I (0.01-0.034) ng/mL Total Protein (6.3-8.2) g/dL Albumin (3.5-5.0) g/dL Globulin (1.7-4.1) g/dL Albumin/Globulin Ratio (1.0-2.8) Lipase (23-300) U/L Urine RBC 5-10/hpf H (0-5/HPF) Urine WBC 0-1/hpf (0-5/HPF) Ur Squamous Epith Cells 1-5 /hpf (0-5/HPF) Urine Bacteria None seen (None) Ur Culture Indicated? Cult not indicated Point of Care Testing Test Results Negative Urine Dip Bedside Urine Glucose Negative Bedside Urine Bilirubin - Negative Bedside Urine Ketone - Negative Urine Specific [place] 1.005 Bedside Urine Occult Blood +++ Bedside Urine pH 6.0 Bedside Urine Protein - Negative Bedside Urine Urobilinogen - Negative Bedside Urine Nitrite - Negative Bedside Urine Leukocytes - Negative Esterase Imaging Data Chest x-ray: Radiologist's Impression: Close Chest X-Ray (Signed) Aron Romano - 07/07/22 Mammogram Screening (Signed) Mark Anthony Nowak - 05/25/22 Mammogram Screening (Signed) Coleman Portillo - 03/03/20 Knee X-Ray (Signed) Rashad Shaw - 07/10/19 Knee X-Ray (Signed) Rashad Shaw - 07/10/19 Pelvis Ultrasound (Signed) Michael Lewis - 08/02/18 Launch?[address] [address] XRay Report Signed Patient: Mouna Newberry MR#: [id number] : 1970 Acct:[id number] Age/Sex: 51 / F Date of Service: 07/07/22 Loc: ED Accession Number: [id number] ?? Procedure: XR chest 1V Ordering Provider: Lakeisha Maier D.O. PROCEDURE:? XR CHEST 1V ? INDICATIONS:? chest pain ? TECHNIQUE:? One view of the chest was acquired.? ? COMPARISON:? None. ? FINDINGS:? ? Surgical changes and devices:? None.? ? Lungs and pleura:? Lungs are clear.? No pleural effusions or pneumothorax.? ? Mediastinum:? Mediastinal contours appear normal.? Heart size is normal.? ? Bones and chest wall:? No suspicious bony lesions.? Overlying soft tissues appear unremarkable.? ? IMPRESSION:? No evidence acute pulmonary process. ? ? ? Dictated by: Aron Romano M.D. on 07/07/2022 at 11:15 ? ? Approved by: Aron Romano M.D. on 07/07/2022 at 11:16?? ECG Data Attestation: I personally reviewed and interpreted this ECG as follows: Interpretation: Sinus tachycardia rate of 1 0 6p are 166 QRS of 72 and QTC 441. No acute ST elevation noted. Nonspecific change. Patient has prior from 09/25/2021 that appears similar although T-waves little bit biphasic today in lead 3 not appreciated any other leads. MDM Narrative Medical decision making narrative: This is a 51-year-old female who presents complaint of feeling woozy, slightly nauseated and lightheaded. She is slightly tachycardic, potassium was noted to be low at 3.1 chloride was 97, glucose is 117 AST ALT are 69 and 60. Troponin is negative with negative CBC and coags. Chest x-ray shows no acute changes. Discussed with patient her symptoms may possibly be from her glyburide clear source was not otherwise found we discussed getting influenza/COVID RSV but she defers. Urine shows some blood, Recommended to hold her medications, see if her symptoms resolve. If persisting she needs additional workup. Patient feels comfortable with this plan. Discharge Plan Departure Patient Disposition: Home Clinical Impression: Nausea Instructions: DI for Nausea -- Adult Activity Restrictions/Additional Instructions: Follow-up with your physician for recheck. Your symptoms may be from her new medication glyburide I would hold your medication for 48 hours if her symptoms resolve and discussed with your physician if you should continue. If your symptoms persist despite holding or stopping her medication it is likely secondary to a different cause. We did not check you for COVID/influenza RSV today would be worthwhile to do this. Please return for fevers, worsening symptoms, severe headaches, passing out, new chest pain, shortness of breath, persistent vomiting, black or bloody stools or other new or concerning changes. Prescriptions: No Action cetirizine 10 MG tablet 10 mg PO DAILY PRN (Reason: Allergy Symptoms) Qty: 0 albuterol sulfate 90 mcg/actuation Hfa Aerosol Inhaler 1 - 2 puff INHALATION Q4-6H PRN (Reason: Dyspnea) Qty: 0 omeprazole 20 MG capsule,delayed release(DR/EC) 20 mg PO QDAY Qty: 90 3RF hydrochlorothiazide 25 mg tablet 25 mg PO QDAY Qty: 90 0RF losartan 50 mg tablet 50 mg PO QDAY Qty: 90 3RF bupropion HCl [Wellbutrin XL] 150 mg tablet extended release 24 hr 150 mg PO QDAY Qty: 90 0RF Rx Instructions: Please establish care with new provider prior to more fills. simvastatin [Zocor] 20 MG tablet 20 mg PO QHS glyburide 2.5 mg tablet 2.5 mg PO DAILY Label Comments: Take 1 tablet by mouth once a day with breakfast (DME) YESSY CPAP 0 .ROUTE .MEDSUPPLY Referrals: Alice Mojica ARNP [Primary Care Provider] - Stand Alone Forms: Patient Portal/API
[2022-07-07 11:29] LABS: Troponin I < 0.012 ng/mL (0.01-0.034)
[2022-07-07] MEDS: POTASSIUM CHLORIDE 20 MEQ/15 ML UDC 40 MEQ PO (12:22)
[2022-07-07 12:47] LABS: Bacteria Urine None Seen; Culture Indicated Urine Cult Not Indicated; RBC Urine 5-10/HPF (0-5/HPF); Squamous Epithelial Cell Urine 1-5 /HPF (0-5/HPF); WBC Urine 0-1/HPF (0-5/HPF)
[2022-07-07 13:03] VITALS: BP 171/79; PULSE 100; RESP 18; O2SAT 95
[2022-07-07 16:15] LABS: Albumin 4.5 g/dL (3.5-5.0); Albumin Globulin Ratio 1.1 (1.0-2.8); Globulin 4.2 g/dL (1.7-4.1)
== END 2022-07-07 13:04 | disposition home or self-care (01) ==
PROVIDERS: Emergency Provider Emergency Medicine; Family Provider Internal Medicine; PCP Internal Medicine
DX: R11.0 Nausea (principal); R00.0 Tachycardia, unspecified; E87.6 Hypokalemia
CPT/HCPCS: 36415; 71045; 80053; 81003; 81015; 81025; 82550; 83690; 83735; 84484; 85025; 85610; 85730; 93005; 99284

== ENCOUNTER → 2022-07-10 15:50 | Outpatient (CLI) | payer OTHER, SELFPAY ==
--- NOTE | 2022-07-10 15:51 | DI.US.S_ITS ---
PROCEDURE: US RENAL COMPLETE INDICATIONS: PROTEINURIA TECHNIQUE: Real-time scanning was performed of the kidneys and bladder, with image documentation. COMPARISON: [facility], , RENAL COMPLETE, 06/02/2014, 14:26. FINDINGS: Kidneys: Kidneys are normal in size. Right kidney measures 12.9 cm long; left kidney measures 11.9 cm long. Right renal cortical thickness is 1.1 cm; left renal cortical thickness is 0.7 cm. Renal cortical echotexture is normal. No hydronephrosis or nephrolithiasis. No suspicious solid mass lesions. Bladder: Pre-void bladder volume is 13.6 mL. No postvoid residual is seen. Pre-void images demonstrate no intraluminal masses or stones. On pre-void images, no ureteral jets are noted with color Doppler interrogation. (Of note, ureteral jets may not be detectable in up to 25% of cases due to insufficient differences in specific gravity between ureteral and bladder urine). Miscellaneous: No free pelvic fluid. IMPRESSION: 1. Normal appearing bilateral kidneys. No hydronephrosis or nephrolithiasis. 2. No gross abnormality is seen in partially distended urinary bladder. Dictated by: Jaziel Phillips M.D. on 07/10/2022 at 16:51 Approved by: Jaziel Phillips M.D. on 07/10/2022 at 17:19
== END ==
PROVIDERS: Family Provider Internal Medicine; PCP Internal Medicine; Referring Provider Internal Medicine; Visit Provider Internal Medicine
DX: R80.9 Proteinuria, unspecified (principal)
CPT/HCPCS: 76770

== ENCOUNTER → 2022-08-05 10:23 | Outpatient (CLI) | payer OTHER, SELFPAY ==
[2022-08-05 11:12] LABS: Add Manual Diff / Slide Review NO; Basophils Absolute Auto 0 /uL (0-100); Basophils Percent Auto 0.5 % (0-2); Eosinophils Absolute Auto 200 /uL (0-450); Hematocrit 41.6 % (36-46); Hemoglobin 14.2 g/dL (12.0-16.0); Lymphocytes Absolute Auto 3100 /uL (1100-4500); Lymphocytes Percent Auto 38.5 % (25-40); Mean Corpuscular Hemoglobin 29.9 PG (26-34); Mean Corpuscular Volume 87.8 fL (80-100); Monocytes Absolute Auto 600 /uL (0-900); Monocytes Percent Auto 7.5 % (3-14); Neutrophils Absolute Auto 4100 /uL (1500-7000); Neutrophils Percent Auto 50.5 % (50-75); Platelet Count 352 X10^3/uL (150-400); Red Blood Cell Count 4.74 X10^6/uL (4.0-5.2); Red Cell Distribution Width 13.9 % (11.6-14.8); White Blood Cell Count 8.1 X10^3/uL (4.5-11.0)
[2022-08-05 11:25] LABS: Cholesterol 194 mg/dL (140-199); HDL Cholesterol 58 mg/dL (40-60); LDL Cholesterol Calculated 99 mg/dL (<100); Triglycerides 185 mg/dL (35-150)
[2022-08-05 11:55] LABS: Thyroid Stimulating Hormone 0.679 uIU/mL (0.47-4.68)
== END ==
PROVIDERS: Family Provider Internal Medicine; PCP Internal Medicine; Referring Provider Internal Medicine; Visit Provider Internal Medicine
DX: I10 Essential (primary) hypertension (principal); R73.03 Prediabetes; R79.89 Other specified abnormal findings of blood chemistry; E78.5 Hyperlipidemia, unspecified; K21.9 Gastro-esophageal reflux disease without esophagitis; E66.9 Obesity, unspecified; Z13.29 Encounter for screening for other suspected endocrine disorder
CPT/HCPCS: 36415; 80061; 84443; 85025

== ENCOUNTER 2022-08-11 07:27 | Day surgery (SDC) | payer OTHER, SELFPAY ==
--- NOTE | 2022-08-11 | PATH_ITS ---
[facility] Accession Number: [id number] No. of containers..01 Tissue . 01 Material submitted: . rectum - RECTAL POLYPS . 01 Diagnosis: Rectum, Polyps, Biopsies: Fragments of hyperplastic polyp and benign lymphoid aggregate. MRV 08/16/2022 1515 Local . 01 Electronically signed: . Emily Osorio MD, Pathologist NPI- [id number] . 01 Gross description: . RECTAL POLYPS: Received in formalin are multiple fragment(s) of wright, soft tissue measuring 1.7 x 0.3 x 0.1 cm in aggregate submitted entirely in 1 cassette(s) /CPE 08/15/2022 0531 Local . 01 Pathologist provided ICD-10: K62.1 . 01 CPT . 968186 Specimen Comment: A courtesy copy of this report has been sent to [facility] Pathology Performed at: 01 [facility] [address] [place] [address], [place], [place] [id number] MD Renzo Perez MD Phone: [phone]
[2022-08-11 07:50] VITALS: BP 145/100; PULSE 111; RESP 16; TEMP 36.6; O2SAT 95; BMI 43.1
[2022-08-11] MEDS: LACTATED RINGERS 1,000 ML 42 ML IV ×2 (08:10→09:29)
--- NOTE | 2022-08-11 08:37 | PM.HP.1 ---
History of Present Illness History of Present Illness Chief complaint: [facility] Narrative: Mrs. Newberry presents today for a screening colonoscopy. She is never had any colonoscopy before and is presenting simply for screening. She has no family history of colon cancer and no alarming symptoms. Patient History Medical History Anxiety and depression (~2001) Asthma (~2006) Cardiac arrhythmia (~2004) Central serous retinopathy (~2012) HTN (hypertension) Hyperthyroidism (~2002) Obstructive sleep apnea Family & Social History Family History Grandmother Cancer Mother Age: 78 Hypertension High cholesterol Grandfather Heart disease Cancer Grandmother Age: 109 Stroke Heart disease Macular degeneration, wet Macular degeneration, dry Social History: household members family,children Tobacco & Substance use: Smoking Status Former smoker alcohol intake current alcohol intake frequency holiday/special occasion Substance Use Type does not use Meds Home Medications and Allergies Home Medications Medication Instructions Recorded Confirmed Type albuterol sulfate 90 mcg/actuation 1 - 2 puff inhalation Q4-6H PRN 04/18/11 08/11/22 History aerosol inhaler Dyspnea ##0 cetirizine 10 mg tablet 10 mg PO DAILY PRN Allergy 04/18/11 08/11/22 History Symptoms ##0 omeprazole 20 mg capsule,delayed 20 mg PO QDAY #90 caps 03/12/17 08/11/22 Rx release hydrochlorothiazide 25 mg tablet 25 mg PO QDAY #90 tabs 03/19/18 08/11/22 Rx losartan 50 mg tablet 50 mg PO QDAY #90 tabs 05/07/18 08/11/22 Rx bupropion HCl 150 mg 24 hr tablet, 150 mg PO QDAY #90 tabs 06/17/18 08/11/22 Rx extended release (Wellbutrin XL) simvastatin 20 mg tablet (Zocor) 20 mg PO QHS 12/04/18 08/11/22 History SHAMIKA CPAP 04/12/22 04/12/22 History Allergies Allergy/AdvReac Type Severity Reaction Status Date / Time cephalexin Allergy Mild RASH Verified 08/11/22 07:39 ciprofloxacin Allergy Mild RASH Verified 08/11/22 07:39 lisinopril Allergy Mild COUGH Verified 08/11/22 07:39 Exam Vital Signs (past 8 hours): - 08/11/22 07:50 Temperature 97.8 F Pulse Rate 111 H Respiratory Rate 16 Blood Pressure 145/100 H Pulse Oximetry 95 Oxygen Delivery Method Room Air Oxygen Delivery Method Room Air Const General: cooperative, healthy appearing and comfortable HENMT Head: normal to inspection Resp Effort & Inspection: normal respiratory effort and able to speak in complete sentences Cardio Pulses: radial pulses present GI Palpation: soft and No tender Assessment & Plan Assessment & Plan narrative: I discussed the risks benefits and alternatives of a screening colonoscopy including but not limited to perforation of the colon and incomplete exam patient understands these risks and would like to proceed today. Time Spent With Patient Critical Care time: I spent a total of [] minutes of critical care time on this patient's care today; this time is exclusive of procedural time.
[2022-08-11 09:19] VITALS: BP 101/59; PULSE 87; RESP 23; TEMP 36.9; O2SAT 90
[2022-08-11 09:21] VITALS: BP 105/50; PULSE 87; RESP 18; O2SAT 98
[2022-08-11 09:23] VITALS: BP 118/48; PULSE 88; RESP 17; O2SAT 96
[2022-08-11 09:28] VITALS: BP 128/76; PULSE 88; RESP 27; O2SAT 98
[2022-08-11 09:36] VITALS: BP 137/85; PULSE 85; RESP 16; O2SAT 98
--- NOTE | 2022-08-11 09:56 | P.OP.COLON_ITS ---
Operative Date/Time/Diagnoses Date of procedure: 08/11/22 Pre-op diagnosis: Screening for colon cancer Procedure & Clinicians Study performed: Colonoscopy and biopsy Same procedure as scheduled: Yes Surgeon: Harriet Delgado Procedure Notes Procedure in detail: Patient was taken to the endoscopy suite and placed in a left lateral decubitus position. A time-out was performed. DECORATING EQUIPMENT SETTER provided conscious sedation. Digital rectal exam was performed. There was a small hemorrhoidal skin tag seen on exam but no at masses or strictures. The colonoscope was introduced into the anal canal and advanced through to the cecum. A photograph was taken of the appendiceal orifice. The scope was then withdrawn slowly and the total withdrawal time was 16 minutes. There were no polyps until we arrived in the rectum and then there were several small scattered rectal polyps all of which were biopsied. They had hyperplastic appearance and were very small. Specimen(s): other (Rectal polyps) Complications: none Impression: If the polyps are hyperplastic the follow-up can be in 10 years. Final follow- up recommendation is based on the pathology report.
== END 2022-08-11 09:45 | disposition home or self-care (01) ==
PROVIDERS: Family Provider Internal Medicine; PCP Internal Medicine; Referring Provider Surgery; Visit Provider Surgery
PROC: 0DJD8ZZ Inspection of Lower Intestinal Tract, Via Natural or Artificial Opening Endoscopic (ICD-10-PCS; CPT 45378; principal; 2022-08-11 08:30)
DX: Z12.11 Encounter for screening for malignant neoplasm of colon (principal); K62.1 Rectal polyp
CPT/HCPCS: 45380; J2704

== ENCOUNTER → 2022-09-30 09:01 | Outpatient (CLI) | payer OTHER, SELFPAY ==
[2022-09-30 09:47] LABS: Appearance Urine UA CLEAR; Bilirubin Urine UA 1+ (NEGATIVE); Color Urine UA YELLOW; Glucose Urine UA NEGATIVE (Negative); Ketones Urine UA NEGATIVE (NEGATIVE); Leukocyte Esterase Urine UA TRACE (NEGATIVE); Nitrite Urine UA NEGATIVE (Negative); Occult Blood Urine UA 3+ (Negative); Protein Urine UA 2+ (Negative); Specific Gravity Urine UA 1.025 (1.000-1.035); Urobilinogen Urine UA 0.2 E.U./dL (0.2)
[2022-09-30 10:12] LABS: Ictotest Urine Negative (Negative); pH Urine UA 5.5 (4.5-8.0)
[2022-09-30 10:13] LABS: Bacteria Urine Moderate (10-30); Culture Indicated Urine Specimen Cultured; RBC Urine 10-30/HPF (0-5/HPF); Squamous Epithelial Cell Urine 1-5 /HPF (0-5/HPF); WBC Urine 1-5/HPF (0-5/HPF)
[2022-09-30 10:17] LABS: Add Manual Diff / Slide Review NO; Basophils Absolute Auto 0 /uL (0-100); Basophils Percent Auto 0.4 % (0-2); Eosinophils Absolute Auto 300 /uL (0-450); Eosinophils Percent Auto 3.2 % (2-4); Hematocrit 41.7 % (36-46); Lymphocytes Absolute Auto 3500 /uL (1100-4500); Mean Corpuscular HGB Conc 33.6 % (30-36); Mean Corpuscular Hemoglobin 29.4 PG (26-34); Mean Corpuscular Volume 87.4 fL (80-100); Monocytes Absolute Auto 700 /uL (0-900); Monocytes Percent Auto 7.2 % (3-14); Neutrophils Absolute Auto 4900 /uL (1500-7000); Neutrophils Percent Auto 52.2 % (50-75); Platelet Count 351 X10^3/uL (150-400); Red Blood Cell Count 4.77 X10^6/uL (4.0-5.2); Red Cell Distribution Width 14.2 % (11.6-14.8); White Blood Cell Count 9.4 X10^3/uL (4.5-11.0)
[2022-09-30 10:40] LABS: Alanine Aminotransferase 27 IU/L (<35); Albumin 3.9 g/dL (3.5-5.0); Alkaline Phosphatase 102 U/L (38-126); Aspartate Aminotransferase 28 IU/L (14-36); BUN Creatinine Ratio 18.3 (6-22); Bilirubin Total 0.9 mg/dL (0.2-1.3); Blood Urea Nitrogen 13 mg/dL (7-17); Calcium 9.5 mg/dL (8.4-10.2); Carbon Dioxide 28 mmol/L (22-32); Chloride 102 mmol/L (98-107); Estimated Glomerular Filt Rate > 60 mL/min (>60); Globulin 3.9 g/dL (1.7-4.1); Glucose 122 mg/dL (70-100); HEMOLYSIS < 15 (0-50); Potassium 3.7 mmol/L (3.4-5.1); Sodium 137 mmol/L (137-145); Total Protein 7.8 g/dL (6.3-8.2)
[2022-09-30 10:47] LABS: Creatinine Urine Random 265.5 mg/dL
[2022-09-30 11:36] LABS: Microalbumi Creatinin Ratio Ur 317.8 ug/mg CR (<30); Microalbumin Urine Random 84.4 mg/dL (0-1.6)
[2022-10-01 09:26] LABS: Labcorp Hemoglobin (Hb) A1c 6.2 % (4.8-5.6)
== END ==
PROVIDERS: Family Provider Internal Medicine; PCP Internal Medicine; Referring Provider Internal Medicine; Visit Provider Internal Medicine
DX: R00.0 Tachycardia, unspecified (principal); R80.9 Proteinuria, unspecified; R79.89 Other specified abnormal findings of blood chemistry; R73.03 Prediabetes; I10 Essential (primary) hypertension; E78.5 Hyperlipidemia, unspecified
CPT/HCPCS: 36415; 80053; 81001; 82043; 82570; 83036; 85025; 87086

== ENCOUNTER → 2023-02-24 09:20 | Outpatient (CLI) | payer OTHER, SELFPAY ==
[2023-02-24 10:52] LABS: Albumin 4.2 g/dL (3.5-5.0); BUN Creatinine Ratio 22.8 (6-22); Blood Urea Nitrogen 18 mg/dL (7-17); Calcium 9.3 mg/dL (8.4-10.2); Carbon Dioxide 24 mmol/L (22-32); Chloride 102 mmol/L (98-107); Estimated Glomerular Filt Rate > 60 mL/min (>60); Glucose 135 mg/dL (70-100); HEMOLYSIS < 15 (0-50); Potassium 3.5 mmol/L (3.4-5.1); Sodium 136 mmol/L (137-145)
[2023-02-24 11:17] LABS: Appearance Urine UA CLEAR; Bilirubin Urine UA NEGATIVE (NEGATIVE); Color Urine UA YELLOW; Glucose Urine UA NEGATIVE (Negative); Ketones Urine UA NEGATIVE (NEGATIVE); Leukocyte Esterase Urine UA NEGATIVE (NEGATIVE); Nitrite Urine UA NEGATIVE (Negative); Occult Blood Urine UA 3+ (Negative); Protein Urine UA 2+ (Negative); Specific Gravity Urine UA >=1.030 (1.000-1.035); Urobilinogen Urine UA 0.2 E.U./dL (0.2)
[2023-02-24 11:33] LABS: pH Urine UA 5.5 (4.5-8.0)
[2023-02-24 11:34] LABS: Bacteria Urine Moderate (10-30); Culture Indicated Urine Specimen Cultured; Hyaline Casts Urine 0-1/LPF; Mucus Urine 1+ (Negative); RBC Urine 5-10/HPF (0-5/HPF); Squamous Epithelial Cell Urine 0-1 /HPF (0-5/HPF); WBC Urine 1-5/HPF (0-5/HPF)
[2023-02-24 12:33] LABS: Creatinine Urine Random 261.1 mg/dL
[2023-02-24 14:42] LABS: Microalbumi Creatinin Ratio Ur 597.4 ug/mg CR (<30)
[2023-02-26 16:25] LABS: Hepatitis B Surface Antigen NEGATIVE s/c (NEGATIVE)
[2023-02-26 17:23] LABS: Hep C Virus Ab w/Reflex Quant NEGATIVE s/c (NEGATIVE)
[2023-02-27 01:56] LABS: Hepatitis B Core AB w/Reflex Negative (Negative); Hepatitis B Surf AB Quant <3.1 mIU/mL (Immunity>9.9)
[2023-02-27 05:30] LABS: Complement C3 201 mg/dL (82-167)
[2023-02-27 14:08] LABS: Albumin 3.4 g/dL (2.9-4.4); Alpha-1-Globulin 0.2 g/dL (0.0-0.4); Alpha-2-Globulin 0.8 g/dL (0.4-1.0); Gamma Globulin 1.5 g/dL (0.4-1.8); Globulin Total 3.7 g/dL (2.2-3.9); Immunoglobulin A, Serum 497 mg/dL (87-352); Immunoglobulin G,Serum 1387 mg/dL (586-1602); Immunoglobulin M, Serum 43 mg/dL (26-217); Protein, Total 7.1 g/dL (6.0-8.5)
[2023-02-27 14:36] LABS: DNA (DS) Antibody <1 IU/mL (0-9)
[2023-02-28 19:56] LABS: ANA Screen, IFA Negative (.)
== END ==
PROVIDERS: Family Provider Internal Medicine; PCP Internal Medicine; Referring Provider Internal Medicine Nephrology; Visit Provider Internal Medicine Nephrology
DX: N18.1 Chronic kidney disease, stage 1 (principal)
CPT/HCPCS: 36415; 80048; 81001; 82040; 82043; 82570; 82784; 84155; 84165; 86038; 86160; 86225; 86334; 86704; 86706; 86803; 87086; 87340

== ENCOUNTER → 2023-03-22 15:29 | Outpatient (CLI) | payer OTHER, SELFPAY | PROVIDERS: Family Provider Internal Medicine; PCP Internal Medicine; Referring Provider Family Medicine; Visit Provider Family Medicine | DX: Z23 Encounter for immunization (principal) | CPT/HCPCS: 90471; 90686 ==

== ENCOUNTER → 2023-05-03 15:38 | Outpatient (CLI) | payer OTHER, SELFPAY ==
[2023-05-03 18:13] LABS: BUN Creatinine Ratio 24.3 (6-22); Blood Urea Nitrogen 18 mg/dL (7-17); Calcium 9.8 mg/dL (8.4-10.2); Carbon Dioxide 26 mmol/L (22-32); Chloride 98 mmol/L (98-107); Estimated Glomerular Filt Rate > 60 mL/min (>60); Glucose 92 mg/dL (70-100); Potassium 3.4 mmol/L (3.4-5.1); Sodium 135 mmol/L (137-145)
[2023-05-03 18:16] LABS: HEMOLYSIS 57 (0-50)
[2023-05-03 18:40] LABS: Creatinine Urine Random 93.8 mg/dL
[2023-05-03 19:07] LABS: Microalbumi Creatinin Ratio Ur 509.5 ug/mg CR (<30); Microalbumin Urine Random 47.8 mg/dL (0-1.6)
== END ==
PROVIDERS: Family Provider Internal Medicine; PCP Internal Medicine; Referring Provider Internal Medicine Nephrology; Visit Provider Internal Medicine Nephrology
DX: N18.1 Chronic kidney disease, stage 1 (principal)
CPT/HCPCS: 36415; 80048; 82043; 82570

== ENCOUNTER → 2023-08-04 09:12 | Outpatient (CLI) | payer OTHER, SELFPAY ==
[2023-08-04 10:58] LABS: Add Manual Diff / Slide Review NO; Basophils Absolute Auto 0 /uL (0-100); Basophils Percent Auto 0.3 % (0-2); Eosinophils Absolute Auto 200 /uL (0-450); Eosinophils Percent Auto 2.3 % (2-4); Hematocrit 42.6 % (36-46); Hemoglobin 14.4 g/dL (12.0-16.0); Lymphocytes Absolute Auto 2600 /uL (1100-4500); Lymphocytes Percent Auto 25.9 % (25-40); Mean Corpuscular HGB Conc 33.8 % (30-36); Mean Corpuscular Hemoglobin 29.4 PG (26-34); Mean Corpuscular Volume 86.8 fL (80-100); Monocytes Absolute Auto 700 /uL (0-900); Monocytes Percent Auto 6.5 % (3-14); Neutrophils Absolute Auto 6500 /uL (1500-7000); Platelet Count 391 X10^3/uL (150-400); Red Blood Cell Count 4.91 X10^6/uL (4.0-5.2); Red Cell Distribution Width 14.2 % (11.6-14.8)
[2023-08-04 11:11] LABS: Alanine Aminotransferase 23 IU/L (<35); Albumin 4.4 g/dL (3.5-5.0); Albumin Globulin Ratio 1.1 (1.0-2.8); Alkaline Phosphatase 85 U/L (38-126); Aspartate Aminotransferase 27 IU/L (14-36); BUN Creatinine Ratio 20.5 (6-22); Bilirubin Total 0.9 mg/dL (0.2-1.3); Blood Urea Nitrogen 17 mg/dL (7-17); Calcium 9.6 mg/dL (8.4-10.2); Carbon Dioxide 27 mmol/L (22-32); Chloride 101 mmol/L (98-107); Cholesterol 234 mg/dL (140-199); Estimated Glomerular Filt Rate > 60 mL/min (>60); Globulin 4.1 g/dL (1.7-4.1); Glucose 135 mg/dL (70-100); HDL Cholesterol 61 mg/dL (40-60); HEMOLYSIS < 15 (0-50); LDL Cholesterol Calculated 142 mg/dL (<100); Potassium 3.7 mmol/L (3.4-5.1); Sodium 138 mmol/L (137-145); Total Protein 8.5 g/dL (6.3-8.2); Triglycerides 155 mg/dL (35-150)
[2023-08-04 11:56] LABS: Free T4, Direct Thyroxine 1.36 ng/dL (0.78-2.19)
[2023-08-04 12:10] LABS: Thyroid Stimulating Hormone 1.07 uIU/mL (0.47-4.68)
[2023-08-04 12:28] LABS: Hemoglobin A1C% w Est Avg Glu 5.9 % (4.0-6.0)
== END ==
LOC: LAB 09:16
PROVIDERS: Family Provider Internal Medicine; PCP Internal Medicine; Referring Provider Internal Medicine; Visit Provider Internal Medicine
DX: E78.5 Hyperlipidemia, unspecified (principal); Z13.0 Encounter for screening for diseases of the blood and blood-forming organs and certain disorders involving the immune mechanism; R79.89 Other specified abnormal findings of blood chemistry; I10 Essential (primary) hypertension; R73.03 Prediabetes; N18.1 Chronic kidney disease, stage 1
CPT/HCPCS: 36415; 80053; 80061; 83036; 84439; 84443; 85025

== ENCOUNTER → 2023-08-09 16:08 | Outpatient (CLI) | payer OTHER, SELFPAY ==
--- NOTE | 2023-08-09 | DI.MG.S_ITS ---
BILATERAL DIGITAL SCREENING MAMMOGRAM 3D/2D WITH CAD: 08/09/2023 CLINICAL: Routine screening. Family history of breast cancer. Comparison is made to exams dated: 05/25/2022 mammogram, 03/06/2017 mammogram, and 03/03/2020 mammogram - [facility]. Both breasts are heterogeneously dense, which may obscure small masses (category c / 51-75% glandular tissue). Current study was also evaluated with a Computer Aided Detection (CAD) system. No significant masses, calcifications, or other findings are seen in either breast. There has been no significant interval change. IMPRESSION: NEGATIVE There is no mammographic evidence of malignancy. A 1 year screening mammogram is recommended. Based on the Tyrer Cuzick model (a risk assessment model) the patient's lifetime risk is 12.9% and her 10 year risk is 3.4%. According to the ACR, ACS, and NCCN guidelines, an annual breast MRI exam along with mammogram is recommended if the patient's lifetime risk is 20% or greater. This exam was interpreted at Station ID: [id number]. NOTE: For mammograms, a report in lay terms will be sent to the patient. Approximately 15% of breast malignancies will not be visualized mammographically. In the management of a palpable breast mass, a negative mammogram must not discourage biopsy of a clinically suspicious lesion. Electronically Signed By: Mark Anthony [email or web address]/[email or web address]:08/10/2023 08:22:06 letter sent: Normal Exam ACR BI-RADS Category 1: Negative [id number]
== END ==
PROVIDERS: Family Provider Internal Medicine; PCP Internal Medicine; Referring Provider Internal Medicine; Visit Provider Internal Medicine
DX: Z12.31 Encounter for screening mammogram for malignant neoplasm of breast (principal); Z80.3 Family history of malignant neoplasm of breast; R92.333 Mammographic heterogeneous density, bilateral breasts
CPT/HCPCS: 77063; 77067

== ENCOUNTER → 2023-09-03 15:48 | Outpatient (CLI) | payer OTHER, SELFPAY ==
[2023-09-03 18:01] LABS: Albumin 4.5 g/dL (3.5-5.0); BUN Creatinine Ratio 14.5 (6-22); Blood Urea Nitrogen 18 mg/dL (7-17); Calcium 10.3 mg/dL (8.4-10.2); Carbon Dioxide 32 mmol/L (22-32); Chloride 99 mmol/L (98-107); Estimated Glomerular Filt Rate 52 mL/min (>60); Glucose 111 mg/dL (70-100); HEMOLYSIS < 15 (0-50); Potassium 3.5 mmol/L (3.4-5.1); Sodium 138 mmol/L (137-145)
[2023-09-03 18:10] LABS: Appearance Urine UA CLEAR; Bilirubin Urine UA NEGATIVE (NEGATIVE); Color Urine UA YELLOW; Glucose Urine UA 2+ g/dL (Negative); Ketones Urine UA NEGATIVE (NEGATIVE); Leukocyte Esterase Urine UA NEGATIVE (NEGATIVE); Nitrite Urine UA NEGATIVE (Negative); Occult Blood Urine UA 3+ (Negative); Protein Urine UA 2+ (Negative); Urobilinogen Urine UA 0.2 E.U./dL (0.2)
[2023-09-03 18:14] LABS: pH Urine UA 5.5 (4.5-8.0)
[2023-09-03 18:25] LABS: Bacteria Urine Occasional (0-1); Culture Indicated Urine Cult Not Indicated; RBC Urine 5-10/HPF (0-5/HPF); Squamous Epithelial Cell Urine 1-5 /HPF (0-5/HPF); Urine Volume 10mL (spun); WBC Urine 0-1/HPF (0-5/HPF)
[2023-09-03 19:50] LABS: Creatinine Urine Random 95.1 mg/dL
[2023-09-03 20:18] LABS: Microalbumi Creatinin Ratio Ur 680.3 ug/mg CR (<30); Microalbumin Urine Random 64.7 mg/dL (0-1.6)
== END ==
LOC: LAB 15:50
PROVIDERS: Family Provider Internal Medicine; PCP Internal Medicine; Referring Provider Internal Medicine Nephrology; Visit Provider Internal Medicine Nephrology
DX: N18.1 Chronic kidney disease, stage 1 (principal)
CPT/HCPCS: 36415; 80048; 81001; 82040; 82043; 82570

== ENCOUNTER → 2023-09-26 15:41 | Outpatient (CLI) | payer OTHER, SELFPAY ==
[2023-09-26 17:11] LABS: Albumin 4.5 g/dL (3.5-5.0); BUN Creatinine Ratio 14.3 (6-22); Blood Urea Nitrogen 12 mg/dL (7-17); Calcium 9.9 mg/dL (8.4-10.2); Carbon Dioxide 26 mmol/L (22-32); Chloride 102 mmol/L (98-107); Estimated Glomerular Filt Rate > 60 mL/min (>60); Glucose 139 mg/dL (70-100); HEMOLYSIS 17 (0-50); Potassium 3.3 mmol/L (3.4-5.1); Sodium 139 mmol/L (137-145)
[2023-09-26 17:54] LABS: Creatinine Urine Random 94.6 mg/dL
[2023-09-26 19:08] LABS: Microalbumi Creatinin Ratio Ur 764.2 ug/mg CR (<30); Microalbumin Urine Random 72.3 mg/dL (0-1.6)
== END ==
PROVIDERS: Family Provider Internal Medicine; PCP Internal Medicine; Referring Provider Internal Medicine Nephrology; Visit Provider Internal Medicine Nephrology
DX: N17.9 Acute kidney failure, unspecified (principal)
CPT/HCPCS: 36415; 80048; 82040; 82043; 82570

== ENCOUNTER → 2023-10-15 15:35 | Outpatient (CLI) | payer OTHER, SELFPAY ==
[2023-10-15 17:34] LABS: BUN Creatinine Ratio 17.4 (6-22); Blood Urea Nitrogen 16 mg/dL (7-17); Calcium 9.6 mg/dL (8.4-10.2); Carbon Dioxide 24 mmol/L (22-32); Chloride 104 mmol/L (98-107); Estimated Glomerular Filt Rate > 60 mL/min (>60); Glucose 123 mg/dL (70-100); HEMOLYSIS 17 (0-50); Potassium 3.3 mmol/L (3.4-5.1); Sodium 137 mmol/L (137-145)
[2023-10-16 15:50] LABS: Creatinine Urine Random 69.9 mg/dL; Protein (Total) Urine Random 74 mg/dL (0-12); Protein Creatinine Ratio Urine 1.05 GRAM/24H
[2023-10-16 16:10] LABS: Microalbumi Creatinin Ratio Ur 599.4 ug/mg CR (<30); Microalbumin Urine Random 41.9 mg/dL (0-1.6)
== END ==
PROVIDERS: Family Provider Internal Medicine; PCP Internal Medicine; Referring Provider Internal Medicine Nephrology; Visit Provider Internal Medicine Nephrology
DX: N17.9 Acute kidney failure, unspecified (principal)
CPT/HCPCS: 36415; 80048; 82043; 82570; 84156

== ENCOUNTER → 2024-03-07 16:26 | Outpatient (CLI) | payer OTHER, SELFPAY ==
[2024-03-07 17:25] LABS: BUN Creatinine Ratio 15.5 (6-22); Blood Urea Nitrogen 16 mg/dL (7-17); Calcium 9.8 mg/dL (8.4-10.2); Carbon Dioxide 23 mmol/L (22-32); Chloride 103 mmol/L (98-107); Estimated Glomerular Filt Rate > 60 mL/min (>60); Glucose 111 mg/dL (70-100); HEMOLYSIS 29 (0-50); Magnesium 1.9 mg/dL (1.6-2.3); Potassium 3.6 mmol/L (3.4-5.1); Sodium 135 mmol/L (137-145)
[2024-03-07 17:57] LABS: Creatinine Urine Random 83.07 mg/dL; Protein (Total) Urine Random 153 mg/dL (0-12); Protein Creatinine Ratio Urine 1.84 GRAM/24H
== END ==
PROVIDERS: Family Provider Internal Medicine; PCP Internal Medicine; Referring Provider Internal Medicine Nephrology; Visit Provider Internal Medicine Nephrology
DX: N17.9 Acute kidney failure, unspecified (principal); N25.89 Other disorders resulting from impaired renal tubular function
CPT/HCPCS: 36415; 80048; 82570; 83735; 84156

== ENCOUNTER → 2024-04-11 15:45 | Outpatient (CLI) | payer OTHER, SELFPAY | PROVIDERS: Family Provider Internal Medicine; PCP Internal Medicine; Referring Provider Internal Medicine; Visit Provider Internal Medicine | DX: Z23 Encounter for immunization (principal) | CPT/HCPCS: 90471; 90656 ==

== ENCOUNTER → 2024-08-08 11:28 | Outpatient (CLI) | payer OTHER, SELFPAY ==
[2024-08-08 13:12] LABS: Add Manual Diff / Slide Review NO; Basophils Absolute Auto 0 /uL (0-100); Basophils Percent Auto 0.5 % (0-2); Eosinophils Absolute Auto 300 /uL (0-450); Eosinophils Percent Auto 3.8 % (2-4); Hematocrit 46.7 % (36-46); Hemoglobin 15.7 g/dL (12.0-16.0); Lymphocytes Absolute Auto 2500 /uL (1100-4500); Lymphocytes Percent Auto 32.4 % (25-40); Mean Corpuscular HGB Conc 33.7 % (30-36); Mean Corpuscular Hemoglobin 29.7 PG (26-34); Mean Corpuscular Volume 88.2 fL (80-100); Monocytes Absolute Auto 600 /uL (0-900); Monocytes Percent Auto 7.5 % (3-14); Neutrophils Absolute Auto 4300 /uL (1500-7000); Neutrophils Percent Auto 55.8 % (50-75); Platelet Count 384 X10^3/uL (150-400); Red Blood Cell Count 5.29 X10^6/uL (4.0-5.2); Red Cell Distribution Width 14.7 % (11.6-14.8); White Blood Cell Count 7.6 X10^3/uL (4.5-11.0)
[2024-08-08 13:35] LABS: Creatinine Urine Random 237.68 mg/dL
[2024-08-08 13:36] LABS: Alanine Aminotransferase 23 IU/L (<35); Albumin 4.6 g/dL (3.5-5.0); Albumin Globulin Ratio 1.2 (1.0-2.8); Alkaline Phosphatase 94 U/L (38-126); Aspartate Aminotransferase 27 IU/L (14-36); BUN Creatinine Ratio 20.5 (6-22); Bilirubin Total 0.9 mg/dL (0.2-1.3); Blood Urea Nitrogen 17 mg/dL (7-17); Calcium 10.2 mg/dL (8.4-10.2); Carbon Dioxide 25 mmol/L (22-32); Chloride 103 mmol/L (98-107); Cholesterol 238 mg/dL (140-199); Estimated Glomerular Filt Rate > 60 mL/min (>60); Globulin 3.8 g/dL (1.7-4.1); Glucose 103 mg/dL (70-100); HDL Cholesterol 83 mg/dL (40-60); HEMOLYSIS < 15 (0-50); LDL Cholesterol Calculated 129 mg/dL (<100); Magnesium 1.9 mg/dL (1.6-2.3); Potassium 4.3 mmol/L (3.4-5.1); Sodium 139 mmol/L (137-145); Total Protein 8.4 g/dL (6.3-8.2); Triglycerides 128 mg/dL (35-150)
[2024-08-08 13:40] LABS: Hemoglobin A1C% w Est Avg Glu 5.6 % (4.0-6.0)
[2024-08-08 14:20] LABS: Vitamin B12 334 pg/mL (239-931)
[2024-08-08 14:27] LABS: Microalbumin Urine Random > 114.0 mg/dL (0-1.6); Protein (Total) Urine Random > 600 mg/dL (0-12)
== END ==
LOC: LAB 11:31
PROVIDERS: Family Provider Internal Medicine; PCP Registered Nurse; Referring Provider Internal Medicine Nephrology; Visit Provider Internal Medicine Nephrology
DX: K21.9 Gastro-esophageal reflux disease without esophagitis (principal); E78.2 Mixed hyperlipidemia; N18.1 Chronic kidney disease, stage 1; R73.03 Prediabetes; N18.2 Chronic kidney disease, stage 2 (mild)
CPT/HCPCS: 36415; 80053; 80061; 82043; 82570; 82607; 83036; 83735; 84156; 85025

== ENCOUNTER → 2024-09-20 | Outpatient (CLI) | payer OTHER, SELFPAY ==
--- NOTE | 2024-09-20 12:39 | DI.MG.S_ITS ---
MM screening mammo BI: 09/20/2024. BI-RADS: 1 CLINICAL: 54-year old female for bilateral screening mammogram. Tyrer-Cuzick lifetime risk of 13.6%. No personal or first-degree family history of breast cancer. PRIOR EXAMS 08/09/2023, 05/25/2022, 03/03/2020, 03/06/2017. MAMMOGRAPHY TECHNIQUE: 2D and 3D (tomosynthesis) digital mammographic views obtained, with additional images as needed for full coverage. Current study was also evaluated with a Computer Aided Detection (CAD) system. DENSITY C. The breasts are heterogeneously dense, which may obscure small masses. MAMMOGRAPHY FINDINGS Bilateral: No suspicious mass, asymmetry, microcalcification, or other abnormality seen. No significant change from comparison. IMPRESSION: * No evidence of malignancy. RECOMMENDATIONS Bilateral * Annual screening mammography. OVERALL ASSESSMENT CATEGORY BI-RADS-1: Negative. The [place] [employer] recommends annual screening mammography beginning at age 40 for women with average risk of breast cancer. ELECTRONICALLY SIGNED: Martina Dunham M.D. on 09/22/2024 at 02:36:33 PM PT Interpreting Station ID: [id number]
== END ==
PROVIDERS: Family Provider Internal Medicine; PCP Registered Nurse; Referring Provider Registered Nurse; Visit Provider Registered Nurse
DX: Z12.31 Encounter for screening mammogram for malignant neoplasm of breast (principal); R92.333 Mammographic heterogeneous density, bilateral breasts
CPT/HCPCS: 77063; 77067

== ENCOUNTER → 2024-11-24 15:46 | Outpatient (CLI) | payer OTHER, SELFPAY ==
[2024-11-24 16:56] LABS: Albumin 4.4 g/dL (3.5-5.0); BUN Creatinine Ratio 14.9 (6-22); Blood Urea Nitrogen 13 mg/dL (7-17); Calcium 9.9 mg/dL (8.4-10.2); Carbon Dioxide 23 mmol/L (22-32); Chloride 104 mmol/L (98-107); Estimated Glomerular Filt Rate > 60 mL/min (>60); Glucose 90 mg/dL (70-99); HEMOLYSIS < 15 (0-50); Potassium 3.9 mmol/L (3.4-5.1); Sodium 138 mmol/L (137-145)
[2024-11-24 18:03] LABS: Protein (Total) Urine Random 99 mg/dL (0-12); Protein Creatinine Ratio Urine 1.33 GRAM/24H
[2024-11-24 18:32] LABS: Microalbumin Urine Random 64.7 mg/dL (0-1.6)
== END ==
PROVIDERS: Family Provider Internal Medicine; PCP Registered Nurse; Referring Provider Internal Medicine Nephrology; Visit Provider Internal Medicine Nephrology
DX: N18.2 Chronic kidney disease, stage 2 (mild) (principal)
CPT/HCPCS: 36415; 80048; 82040; 82043; 82570; 84156

== ENCOUNTER → 2025-03-13 16:06 | Outpatient (CLI) | payer OTHER, SELFPAY ==
[2025-03-13 16:49] LABS: Appearance Urine UA CLEAR; Bilirubin Urine UA 1+ (NEGATIVE); Color Urine UA YELLOW; Glucose Urine UA 3+ g/dL (Negative); Ketones Urine UA 3+ (NEGATIVE); Leukocyte Esterase Urine UA NEGATIVE (NEGATIVE); Nitrite Urine UA NEGATIVE (Negative); Occult Blood Urine UA 3+ (Negative); Protein Urine UA 2+ (Negative); Specific Gravity Urine UA 1.025 (1.000-1.035); Urobilinogen Urine UA 0.2 E.U./dL (0.2)
[2025-03-13 16:53] LABS: pH Urine UA 5.5 (4.5-8.0)
[2025-03-13 17:11] LABS: Culture Indicated Urine Specimen Cultured
[2025-03-13 17:14] LABS: Ictotest Urine Negative (Negative)
[2025-03-13 17:28] LABS: Protein (Total) Urine Random 161 mg/dL (0-12); Protein Creatinine Ratio Urine 1.94 GRAM/24H
[2025-03-13 17:49] LABS: Microalbumi Creatinin Ratio Ur 953.0 ug/mg CR (<30)
[2025-03-13 18:27] LABS: Albumin 4.8 g/dL (3.5-5.0); Blood Urea Nitrogen 28 mg/dL (7-17); Calcium 10.4 mg/dL (8.4-10.2); Carbon Dioxide 27 mmol/L (22-32); Chloride 98 mmol/L (98-107); Estimated Glomerular Filt Rate > 60 mL/min (>60); Glucose 79 mg/dL (70-99); HEMOLYSIS < 15 (0-50); Magnesium 1.8 mg/dL (1.6-2.3); Potassium 4.5 mmol/L (3.4-5.1); Sodium 137 mmol/L (137-145)
== END ==
PROVIDERS: Family Provider Internal Medicine; PCP Registered Nurse; Referring Provider Internal Medicine Nephrology; Visit Provider Internal Medicine Nephrology
DX: N18.1 Chronic kidney disease, stage 1 (principal)
CPT/HCPCS: 36415; 80048; 81001; 82040; 82043; 82570; 83735; 84156; 87086

== ENCOUNTER → 2025-05-21 14:22 | Outpatient (CLI) | payer OTHER, SELFPAY ==
[2025-05-21 15:11] LABS: Bilirubin Urine UA NEGATIVE (NEGATIVE); Color Urine UA YELLOW; Glucose Urine UA 3+ g/dL (Negative); Ketones Urine UA NEGATIVE (NEGATIVE); Leukocyte Esterase Urine UA NEGATIVE (NEGATIVE); Nitrite Urine UA NEGATIVE (Negative); Occult Blood Urine UA 3+ (Negative); Protein Urine UA 2+ (Negative); Specific Gravity Urine UA 1.025 (1.000-1.035); Urobilinogen Urine UA 0.2 E.U./dL (0.2)
[2025-05-21 15:16] LABS: pH Urine UA 5.5 (4.5-8.0)
[2025-05-21 15:17] LABS: Appearance Urine UA Slightly Cloudy
[2025-05-21 15:24] LABS: Culture Indicated Urine Cult Not Indicated
[2025-05-21 16:13] LABS: Microalbumi Creatinin Ratio Ur 658.0 ug/mg CR (<30)
== END ==
PROVIDERS: Family Provider Internal Medicine; PCP Registered Nurse; Referring Provider Internal Medicine Nephrology; Visit Provider Internal Medicine Nephrology
DX: R80.8 Other proteinuria (principal)
CPT/HCPCS: 81001; 82043; 82570